=== PATIENT | male | born 1960 | race Caucasian/White ===

== ENCOUNTER 2017-08-09 18:30 | Emergency (ER) | payer OTHER ==
[2017-08-09 20:50] VITALS: BP 143/88
--- NOTE | 2017-08-09 20:55 | ED ---
GI/ HPI - HPI Summary HPI Summary: 57 yr old male with left upper quadrant abdominal pain for about two weeks, and worse with sitting and position. He rates his pain as a 5 or 6 out of 10. Denies NV. Denies change in stools. He states he drinks heavily on weekends. Denies tobacco. Denies fever, chills weight loss, change in weight, change in stools. Denies blood in urine. No other complaints. He states he had a normal colonoscopy 6 months ago. - History of Current Complaint Chief Complaint: UCGeneralIllness Time Seen by Provider: 08/09/17 20:37 Stated Complaint: LEFT SIDE RIB PAIN Pain Intensity: 6 - Allergy/Home Medications Allergies/Adverse Reactions: Allergies Allergy/AdvReac Type Severity Reaction Status Date / Time No Known Allergies Allergy Verified 08/09/17 20:35 Home Medications: Home Medications NK [No Home Medications Reported] 08/09/17 [History Confirmed 08/09/17] PMH/Surg Hx/FS Hx/Imm Hx Infectious Disease History: No Infectious Disease History: Denies: Traveled Outside the [place] in Last 30 Days - Family History Known Family History: Positive: None - Social History Alcohol Use: Occasionally Substance Use Type: Reports: None Smoking Status (MU): Never Smoked Tobacco Review of Systems Constitutional: Negative Positive: Abdominal Pain All Other Systems Reviewed And Are Negative: Yes Physical Exam Triage Information Reviewed: Yes Vital Signs On Initial Exam: Initial Vitals Temp Pulse Resp BP Pulse Ox 98.2 F 77 18 143/88 97 08/09/17 20:35 08/09/17 20:35 08/09/17 20:35 08/09/17 20:35 08/09/17 20:35 Vital Signs Reviewed: Yes Appearance: Positive: Well-Appearing, No Pain Distress Skin: Positive: Warm, Skin Color Reflects Adequate Perfusion Eyes: Positive: EOMI ENT: Positive: Pharynx normal Neck: Positive: Nontender Respiratory/Lung Sounds: Positive: Clear to Auscultation, Breath Sounds Present Cardiovascular: Positive: RRR. Negative: Murmur Abdomen Description: Positive: Other: - tender in the left upper quadrant slightly without hernia or mass appreciated.. Negative: CVA Tenderness (R), CVA Tenderness (L) Musculoskeletal: Positive: Strength/ROM Intact Neurological: Positive: Sensory/Motor Intact, Alert, Oriented to Person Place, Time, CN Intact II-III Psychiatric: Positive: Normal - [place] Coma Scale Best Eye Response: 4 - Spontaneous Best Motor Response: 6 - Obeys Commands Best Verbal Response: 5 - Oriented Coma Scale Total: 15 Diagnostics - Vital Signs Vital Signs Temp Pulse Resp BP Pulse Ox 08/09/17 20:35 98.2 F 77 18 143/88 97 - Laboratory Lab Statement: Any lab studies that have been ordered have been reviewed, and results considered in the medical decision making process. GIGU Course/Dx - Course Course Of Treatment: 57 yr old with left upper quadrant pain. Etiology not known. I recommend he go to the ER for further work up this evening. he signed out AMA refusing to go to the ER. - Diagnoses Provider Diagnoses: Abdominal pain Discharge - Discharge Plan Condition: Good Disposition: AGAINST MEDICAL ADVICE Referrals: No Primary Care Phys,NOPCP [Primary Care Provider] -
== END 2017-08-09 20:52 | disposition left against medical advice (07) ==
LOC: UCCORT 18:30
DX: R10.12 Left upper quadrant pain (principal); Z72.89 Other problems related to lifestyle
CPT/HCPCS: 99202; G0463